=== PATIENT | female | born 1985 | race Two or more races ===

== ENCOUNTER 2018-09-09 15:20 | Emergency (ER) | payer SELFPAY ==
[~2018-09-09] VITALS: Ht 162.6 cm; Wt 67.9 kg
[2018-09-09 15:37] VITALS: BP 132/102
[2018-09-09 16:04] LABS: BASOPHILS # (AUTO) 0.05 x10^3/uL (0-0.1); BASOPHILS % (AUTO) 1 % (0-1); EOSINOPHILS # (AUTO) 0.17 x10^3/uL (0-0.4); EOSINOPHILS % (AUTO) 2 % (1-7); LYMPHOCYTES # (AUTO) 2.64 x10^3/uL (1-3.4); LYMPHOCYTES % (AUTO) 38 % (22-44); MD NO; MEAN CORPUSCULAR HEMOGLOBIN 29.4 pg (27.0-34.8); MEAN CORPUSCULAR HGB CONC 33.1 g/dL (32.4-35.8); MEAN CORPUSCULAR VOLUME 88.9 fL (80-100); MEAN PLATELET VOLUME 7.2 fL (7.4-10.4); MONOCYTES # (AUTO) 0.57 x10^3/uL (0.2-0.8); MONOCYTES % (AUTO) 8 % (2-9); NEUTROPHILS # (AUTO) 3.54 x10^3/uL (1.8-6.8); NEUTROPHILS % (AUTO) 51 % (42-75); PLATELET COUNT 386 x10^3/uL (130-400); RED BLOOD COUNT 4.86 x10^6/uL (3.82-5.3); RED CELL DISTRIBUTION WIDTH 13.1 % (9.6-15.2)
[2018-09-09 16:14] LABS: ALANINE AMINOTRANSFERASE 33 U/L (12-78); ANION GAP 5 mmol/L (5-15); CHLORIDE 108 mmol/L (98-107); CREATININE 0.63 mg/dL (0.55-1.02)
[2018-09-09 16:18] LABS: ALKALINE PHOSPHATASE 79 U/L (45-117); BILIRUBIN,TOTAL 0.5 mg/dL (0.2-1.0); TOTAL PROTEIN 8.3 g/dL (6.4-8.2)
--- NOTE | 2018-09-09 17:38 | NUR ---
PT ARRIVES TO ED WITH ABD PAIN AND RIGHT FLANK PAIN X 1 DAY. PT REPORTS SHE HAS HAD INCREASED URINATION BUT NO PAINFUL URINATION. PT REPORTS SHE HAS CRAMPING AND SHOOTING PAIN. PT PROVIDED UA SAMPLE AND SENT TO LAB.
[2018-09-09 17:49] LABS: MICROSCOPIC NOT IND
[2018-09-09 17:50] LABS: CULTURE INDICATED? NO
[2018-09-09] MEDS ORDERED: IBUPROFEN 800 MG TABLET ONE (18:17)
[2018-09-09] MEDS ORDERED: METHOCARBAMOL 750 MG TABLET ONE (18:17)
[2018-09-09] MEDS ORDERED: IBUPROFEN 200 MG TABLET PO ONE (18:30)
[2018-09-09] MEDS ORDERED: ONDANSETRON ODT 4 MG PO ONE (18:30)
[2018-09-09] MEDS ORDERED: METHOCARBAMOL 750 MG TABLET PO ONE (18:30)
--- NOTE | 2018-09-09 18:37 | NUR ---
PT MEDICATED PER EMAR.
--- NOTE | 2018-09-09 18:37 | NUR ---
Patient/Caregiver given discharge instructions and they have confirmed that they understand the instructions. Patient ambulatory with steady gait.
== END 2018-09-09 18:46 | disposition home or self-care (01) ==
LOC: ED 18:15
DX: M54.41 Lumbago with sciatica, right side (principal); R10.9 Unspecified abdominal pain; R11.0 Nausea
CPT/HCPCS: 36415; 80053; 81003; 83690; 84703; 85025; 99283